=== PATIENT | male | born 1945 | race Caucasian/White ===

== ENCOUNTER 2021-11-03 18:09 | Observation (INO) | payer MEDICARE, OTHER, MEDICAID ==
[~2021-11-03] VITALS: Ht 167.6 cm; Wt 74.8 kg
[~2021-11-03 18:09] MED LIST: CLOPIDOGREL75 MG PO; FLOMAX 0.4 MG0.4 MG PO; FLUCONAZOL10 MG/1 ML; IMDUR ER TAB 3030 MG PO; LANTUS SOL100 UNIT/1 SQ; METOPROLOL TART25 MG PO; NITROSTAT0.4 MG SL
[2021-11-03 18:48] LABS: HEMOGLOBIN 15.1 gm/dl (14.0-17.5); RED BLOOD COUNT 4.82 M/UL (4.20-5.50); WHITE BLOOD COUNT 9.1 K/UL (4.5-11.0)
[2021-11-04] MEDS ORDERED: FAMOTIDINE40 MG PO (03:42)
[2021-11-04] MEDS ORDERED: FARXIGA10 MG PO (03:43)
[2021-11-04] MEDS ORDERED: NITROSTAT0.4 MG SL (16:42)
== END 2021-11-04 18:05 | disposition home or self-care (01) ==
LOC: ER1 18:09 → CCU 20:50 → CDU 20:50 → CCU 11-04 04:14
PROVIDERS: Physician Assistant Medical; ADMIT Internal Medicine
DX: R07.89 Other chest pain (principal); E11.9 Type 2 diabetes mellitus without complications; E78.5 Hyperlipidemia, unspecified; Z86.711 Personal history of pulmonary embolism; Z88.6 Allergy status to analgesic agent; Z88.1 Allergy status to other antibiotic agents; Z20.822 Contact with and (suspected) exposure to COVID-19; Z79.4 Long term (current) use of insulin; Z79.01 Long term (current) use of anticoagulants; I44.7 Left bundle-branch block, unspecified; I49.3 Ventricular premature depolarization; I11.9 Hypertensive heart disease without heart failure; I34.0 Nonrheumatic mitral (valve) insufficiency
CPT/HCPCS: ECHO; 71045; 78452; 80053; 82550; 82553; 82962; 83874; 83880; 84484; 85025; 85379; 85610; 93005; 93017; 93306; A9502; G0378; J2785; U0002

== ENCOUNTER 2022-02-16 18:23 | Emergency (ER) | payer MEDICARE, OTHER ==
[~2022-02-16 18:23] MED LIST changes: +FAMOTIDINE40 MG PO; +FARXIGA10 MG PO
== END 2022-02-16 20:13 | disposition home or self-care (01) ==
LOC: ER1 18:23
DX: G89.18 Other acute postprocedural pain (principal); K08.89 Other specified disorders of teeth and supporting structures; E10.9 Type 1 diabetes mellitus without complications; Z88.0 Allergy status to penicillin; Z98.818 Other dental procedure status
CPT/HCPCS: 99282

== ENCOUNTER 2022-04-17 06:06 | Emergency (ER) | payer MEDICARE, OTHER ==
[2022-04-17] MEDS ORDERED: LOTRIMIN CREAM45 GM TOP (08:28)
[2022-04-17] MEDS ORDERED: PREDNISONE 20 M20 MG PO (08:28)
[2022-04-17] MEDS ORDERED: CLARITIN10 M2 PO (08:28)
== END 2022-04-17 08:45 | disposition home or self-care (01) ==
LOC: ER1 06:06
DX: R22.0 Localized swelling, mass and lump, head (principal); R30.0 Dysuria; E11.65 Type 2 diabetes mellitus with hyperglycemia; B35.6 Tinea cruris; E11.9 Type 2 diabetes mellitus without complications; I10 Essential (primary) hypertension; I25.2 Old myocardial infarction; Z88.0 Allergy status to penicillin; Z88.6 Allergy status to analgesic agent
CPT/HCPCS: 81001; 82962; 87086; 99283

== ENCOUNTER 2022-04-21 18:20 | Emergency (ER) | payer MEDICARE, OTHER ==
[~2022-04-21 18:20] MED LIST changes: +CLARITIN10 M2 PO; +LOTRIMIN CREAM45 GM TOP; +PREDNISONE 20 M20 MG PO
[2022-04-21 20:26] LABS: HEMOGLOBIN 15.5 gm/dl (14.0-17.5); RED BLOOD COUNT 4.82 M/UL (4.20-5.50); WHITE BLOOD COUNT 12.6 K/UL (4.5-11.0)
[2022-04-21] MEDS ORDERED: Magic Mouthwash PO (22:37)
[2022-04-21] MEDS ORDERED: DIFLUCAN150 MG PO (22:37)
[2022-04-21] MEDS ORDERED: PREDNISONE 20 M20 MG GT (22:37)
== END 2022-04-21 22:48 | disposition home or self-care (01) ==
LOC: ER1 18:20
PROVIDERS: Family Medicine
DX: T78.40XA Allergy, unspecified, initial encounter (principal); L51.1 Stevens-Johnson syndrome; I10 Essential (primary) hypertension; E11.9 Type 2 diabetes mellitus without complications; E78.00 Pure hypercholesterolemia, unspecified
CPT/HCPCS: 80053; 85025; 85652; 86140; 99283

== ENCOUNTER 2022-04-29 19:43 | Inpatient (IN) | payer MEDICARE, OTHER ==
[~2022-04-29] VITALS: Ht 167.6 cm; Wt 69.2 kg
[~2022-04-29 19:43] MED LIST changes: +DIFLUCAN150 MG PO; +Magic Mouthwash PO; +PREDNISONE 20 M20 MG GT; +TRESIBA FL100 UNIT/1 SQ
[2022-04-29 20:17] LABS: HEMOGLOBIN 16.3 gm/dl (14.0-17.5); RED BLOOD COUNT 5.08 M/UL (4.20-5.50)
[2022-04-30 01:55] LABS: HEMOGLOBIN 15.2 gm/dl (14.0-17.5); RED BLOOD COUNT 4.7 M/UL (4.20-5.50); WHITE BLOOD COUNT 11.4 K/UL (4.5-11.0)
[2022-04-30] MEDS ORDERED: PROMETHAZINE HC25 M1 PO (09:53)
[2022-04-30] MEDS ORDERED: LORATADINE10 MG PO (09:53)
[2022-04-30] MEDS ORDERED: TRAMADOL HCL50 MG PO (09:54)
[2022-04-30] MEDS ORDERED: METOPROLOL TART25 MG PO (09:54)
[2022-04-30] MEDS ORDERED: NITROGLYCERIN0.4 MG SL (09:54)
[2022-04-30] MEDS ORDERED: MONTELUKAST SOD10 MG PO (09:54)
[2022-05-01 03:18] LABS: HEMOGLOBIN 14.2 gm/dl (14.0-17.5); RED BLOOD COUNT 4.5 M/UL (4.20-5.50); WHITE BLOOD COUNT 9.1 K/UL (4.5-11.0)
[2022-05-02 03:24] LABS: HEMOGLOBIN 15.2 gm/dl (14.0-17.5); RED BLOOD COUNT 4.8 M/UL (4.20-5.50); WHITE BLOOD COUNT 10.7 K/UL (4.5-11.0)
== END 2022-05-02 11:40 | disposition home or self-care (01) | DRG 682 ==
LOC: ER1 19:43 → CDU 21:15 → M/S 21:38
PROVIDERS: Internal Medicine; Preventive Medicine Occupational Medicine; ADMIT Internal Medicine
DX: N17.9 Acute kidney failure, unspecified (principal); K85.10 Biliary acute pancreatitis without necrosis or infection; I12.9 Hypertensive chronic kidney disease with stage 1 through stage 4 chronic kidney disease, or unspecified chronic kidney disease; N18.9 Chronic kidney disease, unspecified; E11.65 Type 2 diabetes mellitus with hyperglycemia; E87.6 Hypokalemia; E11.22 Type 2 diabetes mellitus with diabetic chronic kidney disease; E78.5 Hyperlipidemia, unspecified; I44.7 Left bundle-branch block, unspecified; Z86.711 Personal history of pulmonary embolism; Z90.89 Acquired absence of other organs; Z88.0 Allergy status to penicillin; Z88.8 Allergy status to other drugs, medicaments and biological substances; Z88.5 Allergy status to narcotic agent; Z82.49 Family history of ischemic heart disease and other diseases of the circulatory system; Z79.4 Long term (current) use of insulin
CPT/HCPCS: 36415; 71045; 76705; 80053; 81001; 82150; 82550; 82553; 82962; 83690; 83735; 83880; 84100; 84478; 84484; 85025; 85379; 85652; 86140; 87086; 93005; 96361; 96374; 96375; 99285; C9113; J1170; J1650; J2405

== ENCOUNTER → 2022-07-03 | Outpatient (CLI) | payer MEDICARE, OTHER ==
[~2022-07-03] MED LIST changes: +LORATADINE10 MG PO; +MONTELUKAST SOD10 MG PO; +NITROGLYCERIN0.4 MG SL; +PROMETHAZINE HC25 M1 PO; +TRAMADOL HCL50 MG PO
== END ==
LOC: HEART 5 06-05 08:00
DX: I49.9 Cardiac arrhythmia, unspecified (principal)